=== PATIENT | female | born 1955 | race Asian ===

== ENCOUNTER 2017-04-11 21:02 | Emergency (ER) | payer MEDICAID ==
[~2017-04-11] VITALS: Ht 165.1 cm; Wt 86.2 kg
[2017-04-11 21:12] VITALS: BP_SYST 123
--- NOTE | 2017-04-11 21:27 | NUR ---
Patient to ER bed 7 to gown for evaluation. Side rails up. Report given to SARITA BOLANOS.
--- NOTE | 2017-04-11 21:30 | NUR ---
Pt is alert and oriented x4. at bedside. Pt C/O dizzyness, nervousness and neck pain. Pt denies any blurry vision, recent fall or lost of consciousness. Pain stated at 5/10. No signs of SOB or acute distress noted. Will continue to monitor.
--- NOTE | 2017-04-11 21:58 | NUR ---
ER Dr. ANAYA at bedside examining patient.
[2017-04-11 22:12] LABS: BASOPHILS # (AUTO) 0.1 K/uL (0.0-0.2); BASOPHILS % (AUTO) 0.7 % (0.0-2.0); EOSINOPHILS # (AUTO) 0.2 K/uL (0.0-0.4); EOSINOPHILS % (AUTO) 1.9 % (0.0-4.0); HEMATOCRIT 47.5 % (36-48); HEMOGLOBIN 15.5 g/dL (12.0-16.0); LYMPHOCYTES # (AUTO) 3.4 K/uL (1.0-5.5); LYMPHOCYTES % (AUTO) 40.7 % (20.5-51.5); MEAN CORPUSCULAR HEMOGLOBIN 29 pg (27-31); MEAN CORPUSCULAR HGB CONC 33 % (32-36); MEAN CORPUSCULAR VOLUME 89 fL (79.0-98.0); MONOCYTES # (AUTO) 0.8 K/uL (0.0-1.0); MONOCYTES % (AUTO) 9.5 % (1.7-9.3); NEUTROPHILS # (AUTO) 3.9 K/uL (1.8-7.7); NEUTROPHILS % (AUTO) 47.2 % (40.0-70.0); PLATELET COUNT (AUTO) 207 K/uL (130-430); RED BLOOD CELL COUNT(AUTO) 5.34 MIL/uL (4.2-6.2); RED CELL DISTRIBUTION WIDTH 12.1 % (9.0-15.0); WHITE BLOOD COUNT (AUTO) 8.4 K/uL (4.8-10.8)
[2017-04-11 22:16] LABS: BILIRUBIN,URINE NEGATIVE (NEGATIVE); BLOOD, URINE NEGATIVE (NEGATIVE); CLARITY/URINE CLEAR (CLEAR); COLOR,URINE YELLOW (YELLOW); GLUCOSE,URINE NEGATIVE (NEGATIVE); KETONES,URINE NEGATIVE (NEGATIVE); LEUKOCYTE ESTERASE ,URINE TRACE (NEGATIVE); NITRITE, URINE NEGATIVE (NEGATIVE); PH,URINE 5.5 (5.0-8.0); PROTEIN URINE NEGATIVE (NEGATIVE); UROBILINOGEN,URINE 0.2 (0.2-1.0)
[2017-04-11 22:20] LABS: CALCIUM 10.5 mg/dL (8.4-11.0); CREATININE 0.74 mg/dL (0.55-1.30)
[2017-04-11 22:24] LABS: BACTERIA,URINE FEW /HPF (None Seen); RBC,URINE 0-3 /HPF (0-3); WBC,URINE 0-3 /HPF (0-3)
[2017-04-11 22:25] LABS: ALBUMIN 4.1 g/dL (3.4-4.8); TOTAL BILIRUBIN 0.6 mg/dL (0.0-1.0)
[2017-04-11 22:27] LABS: POTASSIUM 2.9 mmol/L (3.5-5.1)
[2017-04-11] MEDS: POTASSIUM CHLORIDE 20 MEQ/PKT PACKET PO ONE (22:45)
[2017-04-11] MEDS: KCL 10 mEq in 50 mL (PREMIX) 100 ML IV ONE (22:46)
--- NOTE | 2017-04-11 23:11 | NUR ---
IV K+ started. VSS. No signs of SOB or acute distress noted. Will continue to monitor.
[2017-04-12 01:10] VITALS: BP_SYST 121
--- NOTE | 2017-04-12 01:10 | NUR ---
Patient given written and verbal discharge instructions and verbalizes understanding. ER MD ANAYA discussed with patient the results and treatment provided. Patient in stable condition. ID arm band removed. IV catheter removed intact and dressing applied, no active bleeding. Rx of POTASSIUM given. Patient educated on pain management and to follow up with PMD. Pain Scale 0/10. Opportunity for questions provided and answered.
== END 2017-04-12 01:10 | disposition home or self-care (01) ==
LOC: SED 21:02
DX: E87.6 Hypokalemia (principal); R42 Dizziness and giddiness; I10 Essential (primary) hypertension
CPT/HCPCS: 36415; 80053; 81000; 85025; 93005; 96365; 99285; J3480; J7050